=== PATIENT | female | born 1975 | race Caucasian/White ===

== ENCOUNTER 2024-01-19 01:28 | Emergency (ER) | payer OTHER, SELFPAY ==
[2024-01-19 03:03] LABS: PT Prothrombin Time 26.2 SECONDS (9.4-12.5); Protime INR 2.4
[2024-01-19 03:13] LABS: Barbiturates NEGATIVE (NEGATIVE); Benzodiazepines POSITIVE (NEGATIVE); Cocaine NEGATIVE (NEGATIVE); METHAMPHETAM NEGATIVE (NEGATIVE); Methadone NEGATIVE (NEGATIVE); Opiates NEGATIVE (NEGATIVE); Phencyclidine NEGATIVE (NEGATIVE); THC Cannibis NEGATIVE (NEGATIVE)
[2024-01-19] MEDS ORDERED: ONDANSETRON 4 MG/2 ML VIAL ONE ×2 (03:21→09:30)
[2024-01-19] MEDS ORDERED: MORPHINE 4 MG/ML SYR ONE ×4 (03:21→09:31)
[2024-01-19 03:25] LABS: Hematocrit 22.4 % (36.0-45.0); MCH 24.9 pg (27.0-35.0); MCHC 31.3 g/dL (32.0-36.0); MCV 79.5 fL (80-100); MPV 6.9 fL (7.6-11.3); Nucleated Red Blood Cells % 0.2 % (0-0); Platelets 139 thou/uL (152-406); RBC Red Blood Cell Count 2.82 M/uL (3.86-4.86); Red Cell Distribution Width 20.9 % (12.1-15.2)
[2024-01-19 03:29] LABS: Albumin 2.3 g/dL (3.4-5.0); Albumin/Globulin Ratio 0.8 (1.1-1.8); Anion Gap 8.6 mEq/L (5.0-15.0); Bilirubin Direct 2.8 mg/dL (0-0.2); Bilirubin Indirect, Calculated 1.9 mg/dL (0.2-0.8); Bilirubin Total 4.7 mg/dL (0.2-1.0); Ferritin 22.4 ng/mL (8-252); Globulin 2.9 g/dL (2.3-3.5); Magnesium 1.9 mg/dL (1.6-2.4); Potassium 3.6 mEq/L (3.5-5.1); Protein, Total 5.2 g/dL (6.4-8.2); Troponin High Sensitivity 10.2 pg/mL (<58.9)
[2024-01-19 03:46] LABS: Anisocytosis 2+; Atypical Lymphocytes 2 %; Band Neutrophils 1 % (0-1); Blood Morphology Comment NOTED (NOT SEEN); Differential Total Cells Count 100; Eosinophils 2 % (0-3); Hypochromasia 1+; Lymphocytes 17 % (15-42); Monocytes 10 % (0-10); Ovalocytes 1+; Platelet Estimate DECR; Poikilocytosis 2+; Polychromasia 1+; Segmented Neutrophils 68 % (40-80); Teardrop Cell FEW
--- NOTE | 2024-01-19 03:59 | EDPHYS ---
Physician Documentation [facility] Name: Carlos Neely Age: 48 yrs Sex: Female : 1975 Arrival Date: 01/19/2024 Time: 01:28 Bed 6 Private MD: ED Physician Demetrio Harris HPI: 01/18 02:25 This 48 yrs old Unknown Female presents to ER via Wheelchair with complaints of cp Abnormal Lab Results, Swelling of Lower Extremity, HEMOGLOBIN LESS THAN 7. 02:25 The patient presents with swelling, tenderness. cp 02:25 The complaints affect the right leg and left leg. Onset: The symptoms/episode cp began/occurred gradually. Associated signs and symptoms: Pertinent positives: shortness of breath. patient reports she was referred to ED by pcp for low hemoglobin. patient denies blood in stools, denies black tarry stools but reports mild vaginal menstrual bleeding. Historical: - Allergies: 02:05 No Known Allergies; ha1 - PMHx: 02:05 Cirrhosis of liver; ha1 - Immunization history:: Adult Immunizations up to date. - Infectious Disease History:: Denies. - Social history:: Smoking status: Patient denies any tobacco usage or history of. Patient uses alcohol, on a daily basis. ROS: 02:30 Constitutional: Negative for body aches, chills, fever, poor PO intake, cp 02:30 Cardiovascular: Positive for edema, Negative for chest pain, palpitations, cp 02:30 Respiratory: Positive for shortness of breath, Negative for cough, wheezing, 08:44 Constitutional: as per hpi ec2 Exam: 02:35 Constitutional: The patient appears in no acute distress, alert, awake, cp non-diaphoretic, non-toxic, well developed, well nourished, uncomfortable, 02:35 Head/Face: Normocephalic, atraumatic. cp 02:35 Eyes: Periorbital structures: appear normal, Pupils: equal, round, and reactive to light and accomodation, Extraocular movements: intact throughout, Conjunctiva: normal, no exudate, no injection, Sclera: no appreciated abnormality, Lids and lashes: appear normal, bilaterally, 02:35 ENT: External ear(s): are unremarkable, Nose: is normal, Mouth: Lips: moist, Oral mucosa: pink and intact, moist, Posterior pharynx: is normal, airway is patent, no erythema, no exudate, 02:35 Neck: ROM/movement: is normal, is supple, without pain, no range of motions limitations, 02:35 Chest/axilla: Inspection: normal, 02:35 Cardiovascular: Rate: normal, Rhythm: regular, Edema: 2+ edema to level of left knee and right knee, JVD: is not appreciated, 02:35 Respiratory: the patient does not display signs of respiratory distress, Respirations: normal, no use of accessory muscles, no retractions, labored breathing, is not present, Breath sounds: are clear throughout, no decreased breath sounds, no stridor, no wheezing, 02:35 Abdomen/GI: Inspection: distension, that is mild, Bowel sounds: active, all quadrants, Palpation: soft, in all quadrants, mild abdominal tenderness, in all quadrants, rebound tenderness, is not appreciated, involuntary guarding, is not appreciated, 03:02 ECG was reviewed by the Attending Physician. cp Vital Signs: 01:45 BP 148 / 86; Pulse 98; Resp 17 S; Temp 99.2(O); Pulse Ox 98% on R/A; Weight 58.06 kg; ha1 Height 5 ft. 2 in. ; 03:57 BP 128 / 76; Pulse 91; Resp 16; Pulse Ox 96% ; dd2 04:30 BP 116 / 70; Pulse 92; Resp 15; Pulse Ox 99% ; dd2 06:30 BP 117 / 67; Pulse 90; Resp 15; Pulse Ox 94% ; dd2 07:51 BP 110 / 62; Pulse 88; Resp 15; Pulse Ox 94% on R/A; hb 01:45 Body Mass Index 23.41 (58.06 kg, 157.48 cm) ha1 [place] Coma Score: 02:15 Eye Response: spontaneous(4). Motor Response: obeys commands(6). Verbal Response: dd2 oriented(5). Total: 15. MDM: 01:48 Medical Screening Exam initiated cp 03:00 Differential diagnosis: anemia, GI bleed, electrolyte abnormality, chf, liver failure. cp 06:44 Data reviewed: vital signs, nurses notes, lab test result(s), EKG, radiologic studies, dillon CT scan, plain films. Consideration of Admission/Observation Escalation of care including admission/observation considered. I considered the following discharge prescriptions or medication management in the emergency department Medications were administered in the Emergency Department. See MAR. Test considered but Not performed:. Care significantly affected by the following chronic conditions: Liver Disease. 08:44 ED course: Patient will be an ER to ER transfer, discussed case with the ER physician ecNilesh christian at [facility] who agrees accept the patient for transfer. Patient with a GI bleed, anemia hemoglobin of 7, will give the patient Protonix push and drip as well. Patient require transfer for GI consultation. Patient remains hemodynamically stable.. 01/18 02:22 Order name: Basic Metabolic Panel; Complete Time: 03:36 cp 01/18 03:37 Interpretation: Normal except: CL 110; CA 8.1. cp 01/18 02:22 Order name: CBC with Diff; Complete Time: 03:49 cp 01/18 03:37 Interpretation: Normal except: RBC 2.82; HGB 7.0; HCT 22.4; MCV 79.5; MCH 24.9; MCHC cp 31.3; PLT 139; RDW 20.9; MPV 6.9. 01/18 02:22 Order name: LFT's; Complete Time: 03:36 cp 01/18 03:38 Interpretation: Normal except: AST 47; ALK 159; BILIT 4.7; BILID 2.8; IBILI, CALC 1.9; cp TP 5.2; ALB 2.3; A/G 0.8. 01/18 02:22 Order name: Magnesium; Complete Time: 03:36 cp 01/18 02:22 Order name: NT PRO-BNP; Complete Time: 03:36 cp 01/18 02:22 Order name: PT-INR; Complete Time: 03:04 cp 01/18 03:04 Interpretation: Reviewed. cp 01/18 02:22 Order name: Troponin HS; Complete Time: 03:36 cp 01/18 02:22 Order name: Ptt, Activated; Complete Time: 03:04 cp 01/18 03:04 Interpretation: Reviewed. cp 01/18 02:22 Order name: Type And Screen cp 01/18 05:59 Interpretation: Reviewed. cp 01/18 02:22 Order name: ETOH Level; Complete Time: 03:36 cp 01/18 02:22 Order name: UDS; Complete Time: 03:36 01/18 03:38 Interpretation: Reviewed. 01/18 02:22 Order name: TIBC; Complete Time: 03:36 01/18 03:38 Interpretation: IRON 35.0; %SAT 11.1; Reviewed. 01/18 02:22 Order name: Ferritin; Complete Time: 03:36 01/18 03:30 Order name: Manual Differential; Complete Time: 03:49 EDWA 01/18 03:51 Order name: Lactate w/ 2H reflex if indic.; Complete Time: 05:59 01/18 04:20 Order name: Antibody Identification [facility] 01/18 04:20 Order name: Packed RBC Leukored [facility] 01/18 05:10 Order name: AMMONIA; Complete Time: 06:45 01/18 07:07 Order name: ABO/RH no charge; Complete Time: 08:39 [facility] 01/18 02:22 Order name: XRAY Chest (1 view) 01/18 03:51 Order name: CT Chest, Abdomen, Pelvis - W/Contrast 01/18 02:22 Order name: EKG; Complete Time: 02:23 01/18 02:22 Order name: Cardiac monitoring; Complete Time: 03:15 01/18 02:22 Order name: EKG - Nurse/Tech; Complete Time: 03:15 01/18 02:22 Order name: IV Saline Lock; Complete Time: 03:15 01/18 02:22 Order name: Labs collected and sent; Complete Time: 03:15 01/18 02:22 Order name: O2 Per Protocol; Complete Time: 03:15 01/18 02:22 Order name: O2 Sat Monitoring; Complete Time: 03:15 EC:02 Rate is 89 beats/min. Rhythm is regular. OK interval is normal. QRS interval is normal. cp QT interval is normal. T waves are Inverted in lead aVR. Interpreted by me. Reviewed by me. Administered Medications: 03:35 Drug: morphine IVP or IV 4 mg IVP once over 4 mins Route: IVP; Infused Over: 4 mins; dd2 Site: right antecubital; 03:50 Follow up: Response: No adverse reaction dd2 03:35 Drug: Ondansetron IVP 4 mg IVP once; over 2 minutes Route: IVP; Site: right antecubital;dd2 03:50 Follow up: Response: No adverse reaction dd2 06:24 Drug: morphine IVP or IV 4 mg IVP once over 4 mins Route: IVP; Infused Over: 4 mins; bm8 Site: right antecubital; 06:39 Follow up: Response: No adverse reaction dd2 06:29 Drug: Piperacillin-Tazobactam IVPB 3.375 grams IVPB once over 60 mins; (mix in NS 100 bm8 mL) Route: IVPB; Infused Over: 60 mins; Site: right antecubital; 06:44 Follow up: Response: No adverse reaction dd2 09:10 Drug: Pantoprazole IVP 80 mg IVP once Route: IVP; Site: right antecubital; hb 09:25 Follow up: Response: Medication administered at discharge. hb 09:22 Drug: Pantoprazole IV 8 mg/hr IV at 25 ml/hr continuous; (Standard dilution is 80 mg in hb 250 mL NS) Route: IV; Rate: 25 ml/hr; Site: right antecubital; 09:25 Follow up: Response: Medication administered at discharge.; IV Status: Infusion hb continued upon transfer; IV Intake: 2ml 09:35 Drug: morphine IVP or IV 4 mg IVP once over 4 mins Route: IVP; Infused Over: 4 mins; hb Site: right antecubital; 09:35 Drug: Ondansetron IVP 4 mg IVP once; over 2 minutes Route: IVP; Site: right antecubital;hb Disposition: 06:43 Co-signature as Attending Physician, Devonte Mckenzie MD I agree with the assessment and dillon plan of care. Disposition Summary: 01/19/24 03:58 Transfer Ordered Notes: Transfer Location: [facility] cp Reason: Higher level of care cp Condition: Stable cp Problem: new cp Symptoms: have improved cp Accepting Physician: DR HAYNES(01/19/24 10:04) hb Diagnosis - Anemia in other chronic diseases classified elsewhere cp - Hepatic failure, unspecified without coma cp - Alcoholic cirrhosis of liver cp - Pneumonia, unspecified organism cp - Alcoholic cirrhosis of liver with ascites dillon Forms: - Medication Reconciliation Form cp - SBAR form cp Critical care time excluding procedures: 08:50 Critical care time: Bedside Care: 20 minutes, Consultation: 10 minutes, Family ec2 Intervention: 5 minutes. Total time: 35 minutes Signatures: Dispatcher [employer] Devonte Garcia MD MD cha Page, Corey, Laura Ken cp, RN RN hb [address] RN RN ha1 Demetrio Harris MD MD ec2 Valentín Blanca RN RN bm8 LIVIER JANE RN RN dd2 Corrections: (The following items were deleted from the chart) 06:06 03:58 DR cathy morgan 06:09 06:06 DR cathy carranza 06:48 06:09 DR dillon carranza 10:04 06:48 DR [place] carranza
--- NOTE | 2024-01-19 03:59 | ER ---
Nurse's Notes [facility] Name: Carlos Neely Age: 48 yrs Sex: Female : 1975 Arrival Date: 01/19/2024 Time: 01:28 Bed 6 Private MD: Diagnosis: Anemia in other chronic diseases classified elsewhere;Hepatic failure, unspecified without coma;Alcoholic cirrhosis of liver;Pneumonia, unspecified organism;Alcoholic cirrhosis of liver with ascites Presentation: 01/18 01:45 Chief complaint: Patient states: ABNORMAL LAB RESULTS, SWELLING OF LOWER EXTREMITIES. ha1 01:45 Coronavirus screen: Vaccine status: Patient reports being unvaccinated. Ebola Screen: ha1 No symptoms or risks identified at this time. Initial Sepsis Screen: Does the patient meet any 2 criteria? No. Patient's initial sepsis screen is negative. Does the patient have a suspected source of infection? No. Patient's initial sepsis screen is negative. Risk Assessment: Do you want to hurt yourself or someone else? Patient reports no desire to harm self or others. Onset of symptoms was January 19, 2024. 01:45 Method Of Arrival: Wheelchair ha1 01:45 Acuity: NAKITA 3 ha1 Triage Assessment: 01:45 General: Appears uncomfortable, Behavior is cooperative. General: SENT BY PCP DUE TO ha1 LOW HEMOGLOBIN LEVELS . Neuro: Level of Consciousness is awake, alert, obeys commands, Oriented to person, place, time, situation. Respiratory: Airway is patent Respiratory effort is even, unlabored, Respiratory pattern is regular, symmetrical. Historical: - Allergies: 02:05 No Known Allergies; ha1 - PMHx: 02:05 Cirrhosis of liver; ha1 - Immunization history:: Adult Immunizations up to date. - Infectious Disease History:: Denies. - Social history:: Smoking status: Patient denies any tobacco usage or history of. Patient uses alcohol, on a daily basis. Screenin:15 [facility] ED Fall Risk Assessment (Adult) History of falling in the last 3 months, dd2 including since admission No falls in past 3 months (0 pts) Confusion or Disorientation No (0 pts) Intoxicated or Sedated No (0 pts) Impaired Gait No (0 pts) Mobility Assist Device Used No (0 pt) Altered Elimination No (0 pt) Score/Fall Risk Level 0 - 2 = Low Risk Oriented to surroundings, Maintained a safe environment, Educated pt \\T\\ family on fall prevention, incl call for assistance when getting out of bed, Assessed \\T\\ reinforced patient's understanding of fall precautions, Hourly rounding (assess needs \\T\\ fall precautionary measures) done. Abuse screen: Denies threats or abuse. Nutritional screening: No deficits noted. Tuberculosis screening: No symptoms or risk factors identified. Assessment: 02:15 General: Appears uncomfortable, Behavior is calm, cooperative, appropriate for age. dd2 Pain: Complains of pain in abdomen, right leg and left leg. Neuro: Level of Consciousness is awake, alert, obeys commands, Oriented to person, place, time, situation, Appropriate for age. Cardiovascular: Denies chest pain, Heart tones S1 S2 present Patient's skin is warm and dry. Respiratory: Airway is patent Respiratory effort is even, unlabored, Respiratory pattern is regular, symmetrical, Breath sounds are clear bilaterally. GI: Abdomen is round distended, Bowel sounds Abd is non tender Reports abd swelling. : No deficits noted. No signs and/or symptoms were reported regarding the genitourinary system. Urine is cloudy, [place] colored. EENT: No deficits noted. No signs and/or symptoms were reported regarding the EENT system. Derm: Skin is dry, Skin is jaundiced, Skin temperature is warm. Musculoskeletal: No deficits noted. No signs and/or symptoms reported regarding the musculoskeletal system. Circulation, motion, and sensation intact. Range of motion: intact in all extremities. 02:15 Derm: Musculoskeletal: Swelling present in abdomen, right leg and left leg. dd2 07:51 Reassessment: Patient appears in no apparent distress at this time. Patient and/or hb family updated on plan of care and expected duration. Pain level reassessed. Patient is alert, oriented x 3, equal unlabored respirations, skin warm/dry/pink. Vital Signs: 01:45 BP 148 / 86; Pulse 98; Resp 17 S; Temp 99.2(O); Pulse Ox 98% on R/A; Weight 58.06 kg; ha1 Height 5 ft. 2 in. ; 03:57 BP 128 / 76; Pulse 91; Resp 16; Pulse Ox 96% ; dd2 04:30 BP 116 / 70; Pulse 92; Resp 15; Pulse Ox 99% ; dd2 06:30 BP 117 / 67; Pulse 90; Resp 15; Pulse Ox 94% ; dd2 07:51 BP 110 / 62; Pulse 88; Resp 15; Pulse Ox 94% on R/A; hb 01:45 Body Mass Index 23.41 (58.06 kg, 157.48 cm) ha1 [place] Coma Score: 02:15 Eye Response: spontaneous(4). Motor Response: obeys commands(6). Verbal Response: dd2 oriented(5). Total: 15. ED Course: 01:31 Patient arrived in ED. [id number] 01:39 Valentín Blanca, RN is Primary Nurse. bm8 01:48 Devonte Gibbs PA is PHCP. cp 01:48 Devonte Mckenzie MD is Attending Physician. cp 02:05 Triage completed. ha1 02:15 No provider procedures requiring assistance completed. dd2 02:15 Patient has correct armband on for positive identification. Bed in low position. Call dd2 light in reach. Side rails up X 1. Client placed on continuous cardiac and pulse oximetry monitoring. NIBP monitoring applied. monitoring analyst on. Door closed. Noise minimized. Warm blanket given. Pillow given. Verbal reassurance given. 02:44 Inserted saline lock: 20 gauge in right antecubital area, using aseptic technique. kmf Blood collected. Flushed with 10 mL NS. 03:14 Initial lab(s) drawn, by ED staff, sent to lab. Urine collected: clean catch specimen, dd2 mad[place] colored, EKG done, by ED staff, reviewed by Devonte HOLLINGSWORTH. Patient maintains SpO2 saturation greater than 95% on room air. 03:46 XRAY Chest (1 view) In Process Unspecified. EDMS 04:14 Lactate w/ 2H reflex if indic. Sent. dd2 04:14 Blood Culture Adult (2) Sent. dd2 04:41 CT Chest, Abdomen, Pelvis - W/Contrast In Process Unspecified. EDMS 05:37 T\\T\\S collected, blood band applied to patient. bm8 06:40 called the [facility] transfer center to check on the status of the transfer initiated eb by caustic cresylate shift superintendent/ per transfer center "there is only two of us , give us sometime , we're working on three other transfers currently" provider notified of the delay. 06:50 connected the hospitalist director of food and nutrition for [facility] with Dr. Mckenzie for patient transfer eb consultation. 08:42 connected the ED doctor director of food and nutrition for [facility] with Dr. Harris for patient transfer eb consultation. 08:44 Attending Physician role handed off by Devonte Mckenzie MD ec2 08:44 Demetrio Harris MD is Attending Physician. ec2 08:44 administrative approval given by Jo Ann Salazar Rn/ patient has been accepted to [facility] ED/ Dr. Cardenas has accepted the patient transfer/ report to be called to [phone]. 09:25 Inserted saline lock: 22 gauge in left Flushed with 10 mL NS Inserted by Joya Talamantes RN.iw Administered Medications: 03:35 Drug: morphine IVP or IV 4 mg IVP once over 4 mins Route: IVP; Infused Over: 4 mins; dd2 Site: right antecubital; 03:50 Follow up: Response: No adverse reaction dd2 03:35 Drug: Ondansetron IVP 4 mg IVP once; over 2 minutes Route: IVP; Site: right antecubital;dd2 03:50 Follow up: Response: No adverse reaction dd2 06:24 Drug: morphine IVP or IV 4 mg IVP once over 4 mins Route: IVP; Infused Over: 4 mins; bm8 Site: right antecubital; 06:39 Follow up: Response: No adverse reaction dd2 06:29 Drug: Piperacillin-Tazobactam IVPB 3.375 grams IVPB once over 60 mins; (mix in NS 100 bm8 mL) Route: IVPB; Infused Over: 60 mins; Site: right antecubital; 06:44 Follow up: Response: No adverse reaction dd2 09:10 Drug: Pantoprazole IVP 80 mg IVP once Route: IVP; Site: right antecubital; hb 09:25 Follow up: Response: Medication administered at discharge. hb 09:22 Drug: Pantoprazole IV 8 mg/hr IV at 25 ml/hr continuous; (Standard dilution is 80 mg in hb 250 mL NS) Route: IV; Rate: 25 ml/hr; Site: right antecubital; 09:25 Follow up: Response: Medication administered at discharge.; IV Status: Infusion hb continued upon transfer; IV Intake: 2ml 09:35 Drug: morphine IVP or IV 4 mg IVP once over 4 mins Route: IVP; Infused Over: 4 mins; hb Site: right antecubital; 09:35 Drug: Ondansetron IVP 4 mg IVP once; over 2 minutes Route: IVP; Site: right antecubital;hb Medication: 02:15 VIS not applicable for this client. dd2 Intake: 09:25 IV: 2ml; Total: 2ml. hb Outcome: 03:58 ER care complete, transfer ordered by . 10:04 Patient left the ED. hb Signatures: Dispatcher [employer] Uyen Carvalho RN RN Devonte Cole PA PA cp Laura Alejandre RN RN Sarah Cardenas Jennifer jj6 [address] RN RN ha1 Demetrio Harris MD MD 2 Rona Bone Brad RN RN bm8 LIVIER JANE RN RN dd2
--- NOTE | 2024-01-19 05:28 | RAD REPORT ---
EXAM DESCRIPTION: Chest Abdomen Pelvis W Cont CLINICAL HISTORY: sob, abdominal swelling COMPARISON: None Available. TECHNIQUE: CT of the chest, abdomen and pelvis performed following IV administration of iodinated con trast. This exam was performed according to our departmental dose-optimization program, which includes automated exposure control, adjustment of the mA and/or kV according to patient size and/or use of iterative reconstruction technique. FINDINGS: Chest: Thyroid: No abnormalities of the visualized thyroid. Great Vessels: Great vessels have normal anatomic configuration. Thoracic Aorta: No abnormalities of the thoracic aorta identified. Pulmonary arteries: No central filling defects. Heart: Cardiac megaly. Lymph Nodes: No enlarged mediastinal lymph nodes identified. Esophagus: Small hiatal hernia. Other: No additional findings. Lungs: Mild patchy peripheral groundglass opacities bilaterally. Pleura: No pleural effusion or pneumothorax. Trachea/Airways: No abnormalities of the visualized trachea or airways. Abdomen: Liver: Nodular contour of liver. Gallbladder: No calcified gallstones. Spleen, Pancreas, and Adrenal Glands: Splenomegaly. Splenorenal shunt. The pancreas and adrenal gla nds are unremarkable. Kidneys: No hydronephrosis or obstructing ureteral calculus. Vasculature: The aorta and IVC have normal caliber and position. The portal vein is patent. The pro ximal visceral and renal arteries are patent. Stomach: The stomach and duodenum have normal course. Other: No free intraperitoneal air. Moderate amount of ascites. Body wall anasarca. Pelvis: Bladder: Urinary bladder is unremarkable. Bowel: No dilated loops of large or small bowel. Wall thickening of the ascending colon. Scattered diverticula of the colon. Appendix: Normal appendix. Pelvis: Uterus is not enlarged. Bones: No acute osseous abnormality. IMPRESSION: 1. Mild patchy peripheral groundglass opacities bilaterally. Commonly reported imaging features of viral pneumonia are present. Other processes such as influenza pneumonia and organizing pneumonia, as can be seen with drug toxicity and connective tissue disease, can cause similar imaging pattern. 2. Findings compatible with cirrhosis and portal hypertension. Moderate amount of ascites. 3. Splenomegaly. 4. Wall thickening of the ascending colon. This could be seen with nonspecific colitis or may be re lated to hypoproteinemia. 5. Diverticulosis without evidence of acute diverticulitis. 6. Cardiomegaly. Electronically signed by: Edin Ulloa DO 01/19/2024 05:24 AM CDT 4ZDM Due to temporary technical issues with the PACS/[employer] reporting system, reports are being ok d by the in-house radiologist without review as a courtesy to ensure prompt reporting the interpreting radiologist is fully responsible for the content of the report. Transcribed Date/Time: 01/19/2024 5:27 AM
--- NOTE | 2024-01-19 06:08 | RAD REPORT ---
EXAM DESCRIPTION: Chest Single View CLINICAL HISTORY: edema COMPARISON: None. FINDINGS: 1 view(s) of the chest. Tubes and lines: None. Cardiomediastinal silhouette: Cardiomegaly. Lungs: No consolidation, pneumothorax, or pleural effusion. Bones: No acute osseous abnormality. Upper abdomen: No abnormality identified. IMPRESSION: No acute pulmonary process identified. Cardiomegaly. Electronically signed by: Edin Ulloa DO 01/19/2024 05:20 AM CDT RP 4ZDM Due to temporary technical issues with the PACS/[employer] reporting system, reports are being ok d by the in-house radiologist without review as a courtesy to ensure prompt reporting the interpreting radiologist is fully responsible for the content of the report. Transcribed Date/Time: 01/19/2024 6:07 AM
[2024-01-19] MEDS ORDERED: NA CHLORIDE 0.9% 100 ML ONE (06:21)
[2024-01-19] MEDS ORDERED: PIPERACIL/TAZO 3.375 GM VIAL IV ONE (06:22)
[2024-01-19] MEDS ORDERED: PANTOPRAZOLE 40 MG INJ ONE (09:06)
[2024-01-19] MEDS ORDERED: NA CHLORIDE 0.9% 250 ML ONE (09:07)
[2024-01-19 10:32] VITALS: TEMP 99.2
[2024-01-19 10:36] VITALS: O2SAT 94
[2024-01-19 10:37] VITALS: BP 110/62
--- NOTE | 2024-01-22 12:25 | EKG ---
Test Date: 2024-01-19 Test Time: 02:56:17 It Security Specialist: FANNY MEASUREMENT RESULTS: Intervals: Rate: 89 MA: 146 QRSD: 74 QT: 384 QTc: 467 Parlier: P: 71 MA: 146 QRS: 40 T: 47 INTERPRETIVE STATEMENTS: Normal sinus rhythm Normal ECG No previous ECG available for comparison Electronically Signed On 01-22-24 12:19:12 GEOSPATIAL TECHNICIAN by Bandar Atkinson
== END 2024-01-19 10:04 | disposition short-term general hospital (02) ==
LOC: ER 01:28
DX: K70.31 Alcoholic cirrhosis of liver with ascites (principal); D63.8 Anemia in other chronic diseases classified elsewhere; K72.90 Hepatic failure, unspecified without coma; J18.9 Pneumonia, unspecified organism
CPT/HCPCS: 36415; 71045; 71260; 74177; 80048; 80076; 80307; 82077; 82140; 82728; 83540; 83605; 83735; 83880; 84466; 84484; 85025; 85610; 85730; 86850; 86870; 86880; 86900; 86901; 93005; 96374; 96375; 99285; J2405; J2470; J2543; J7050; Q9967

== ENCOUNTER 2024-02-23 05:47 | Emergency (ER) | payer OTHER, SELFPAY ==
[2024-02-23 06:37] LABS: Absolute Basophils 0.1 K/uL (0-0.5); Absolute Lymphocytes (CBC) 3.3 K/uL (0.7-4.9); Absolute Monocytes 2.3 K/uL (0.1-1.3); Absolute Neutrophil 13.1 K/uL (1.8-8.0); Basophils % 0.4 % (0-1.3); Eosinophils % 0.1 % (0-4.4); Hematocrit 24.4 % (36.0-45.0); Hemoglobin 8.2 g/dL (12.0-15.0); Lymphocytes % 17.4 % (15.3-44.8); MCH 34.9 pg (27.0-35.0); MCHC 33.5 g/dL (32.0-36.0); MCV 104.3 fL (80-100); MPV 7.3 fL (7.6-11.3); Monocytes % 12.4 % (3.3-12.3); Neutrophils % 69.7 % (41.7-73.7); Nucleated Red Blood Cells % 0.2 % (0-0); Platelets 131 thou/uL (152-406); RBC Red Blood Cell Count 2.34 M/uL (3.86-4.86); Red Cell Distribution Width 27.9 % (12.1-15.2)
[2024-02-23] MEDS ORDERED: CEFTRIAXONE 1000 MG/VIAL ONE (06:39)
[2024-02-23] MEDS ORDERED: NA CHLORIDE 0.9% 500 ML ONE (06:40)
[2024-02-23] MEDS ORDERED: ALBUMIN HUMAN 25% 100 ML IV ONE (06:41)
[2024-02-23] MEDS ORDERED: NA CHLORIDE 0.9% 50 ML ONE (06:41)
[2024-02-23 06:44] LABS: PT Prothrombin Time 21.8 SECONDS (9.4-12.5); PTT, Activated Partial Thromb 38.4 SECONDS (24.3-36.9); Protime INR 1.99
--- NOTE | 2024-02-23 07:00 | RAD REPORT ---
EXAM: Chest Single View HISTORY: CHEST PAIN COMPARISON: None. FINDINGS: LUNGS/PLEURA: Persistent airspace disease in the medial right lung base which is mildly consolidative . The lungs are otherwise clear. No pulmonary edema. MEDIASTINUM: The mediastinal silhouette is within normal limits. CARDIAC: The cardiac silhouette is within normal limits. UPPER ABDOMEN: No significant abnormality. BONES: No acute fracture. LINES/TUBES/OTHER: N/A IMPRESSION: Persistent airspace disease in the medial right lung base consistent with pneumonia or sequela of rec ent pneumonia.
[2024-02-23 07:09] LABS: Albumin 2.3 g/dL (3.4-5.0); Albumin/Globulin Ratio 0.9 (1.1-1.8); Anion Gap 10.3 mEq/L (5.0-15.0); Globulin 2.5 g/dL (2.3-3.5); Potassium 3.3 mEq/L (3.5-5.1); Protein, Total 4.8 g/dL (6.4-8.2)
[2024-02-23 07:10] LABS: Bilirubin Direct 6.5 mg/dL (0-0.2); C-Reactive Protein 29.5 mg/L (<3.00); Troponin High Sensitivity 51.2 pg/mL (<58.9)
--- NOTE | 2024-02-23 07:29 | RAD REPORT ---
EXAMINATION: CT HEAD WITHOUT CONTRAST CLINICAL INDICATION: Female, 48 years old.CONFUSED TECHNIQUE: Axial CT images from the skull base to the vertex without intravenous contrast. Coronal an d sagittal reformatted images were created from the data set. One or more of the following dose reduction techniques were used: Automated exposure control, adjustment of the mA and/or kV according to patient size, and/or iterative reconstruction. Unless otherwise specified, incidental findings do not require dedicated imaging follow-up. [id number]. COMPARISON: No prior exam. FINDINGS: INTRACRANIAL: No acute intracranial hemorrhage. No hydrocephalus. No mass effect or midline shift. No significant white matter disease. VASCULATURE: No visualized abnormalities in the arteries or dural venous sinuses. SCALP/SKULL: No significant soft tissue or osseous abnormalities. SINUSES: The visualized paranasal sinuses and mastoid air cells are predominantly clear. IMPRESSION: No acute intracranial abnormality.
[2024-02-23] MEDS ORDERED: LACTULOSE 20 GM/30 ML UCUP ONE (07:59)
[2024-02-23] MEDS ORDERED: ONDANSETRON 4 MG/2 ML VIAL ONE (07:59)
[2024-02-23 08:06] LABS: Anisocytosis 2+; Blood Morphology Comment NOTED (NOT SEEN); Platelet Estimate ADEQ; White Blood Cell Scan OK (OK)
[2024-02-23 08:06] LABS: Specific Gravity 1.013 (1.005-1.030); Sqamous Epithelial <5 /HPF (None Seen); Urine Bacteria None Seen /HPF (<20); Urine Bilirubin 1+ (Negative); Urine Blood 1+ (Negative); Urine Clarity Turbid (Clear); Urine Color Dark-Yellow (Yellow); Urine Culture Reflex Order NOT NEEDED; Urine Glucose NEGATIVE (Negative); Urine Ketones NEGATIVE (Negative); Urine Microscopic Reflex YN ORDER UMIC; Urine Mucus Slight /HPF (None Seen); Urine Nitrite NEGATIVE (Negative); Urine Protein NEGATIVE (Negative); Urine RBC <5 /HPF (None Seen); Urine Urobilinogen 4+ (Over) (Normal); Urine WBC <5 /HPF (<5)
[2024-02-23 08:07] LABS: Burr Cells 1+; Macrocytosis 1+; Polychromasia 1+
--- NOTE | 2024-02-23 08:16 | EDPHYS ---
Physician Documentation [facility] Name: Carlos Neely Age: 48 yrs Sex: Female : 1975 Arrival Date: 02/23/2024 Time: 05:47 Bed 18 Private MD: ED Physician Dusty Mitchell HPI: 02/22 06:15 This 48 yrs old Female presents to ER via EMS with complaints of Altered sp4 Mental Status. 07:25 48-year-old female presents with altered mental status. EMS reported that patient's sp4 friend called EMS. Patient has history of extensive alcohol abuse and liver cirrhosis. On arrival patient is unable to provide any history. She appears confused. Patient is jaundiced and has scleral icterus. Historical: - Allergies: 06:11 No Known Allergies; kj2 - PMHx: 06:11 cirrhosis of liver; kj2 - Immunization history:: Adult Immunizations unknown. - Infectious Disease History:: Denies. - Social history:: Smoking status: unknown. - Family history:: not pertinent. ROS: 07:25 Constitutional: Negative for fever, chills, and weight loss, positive for jaundice, sp4 positive for confusion 07:25 All other systems are negative, 07:25 Unable to obtain ROS due to obtunded state, Exam: 07:25 Constitutional: Ill-appearing female, jaundiced, scleral icterus, generalized sp4 weakness, physical deconditioning, signs of liver failure Head/Face: Normocephalic, atraumatic. Eyes: Pupils equal round and reactive to light, extra-ocular motions intact. Lids and lashes normal. Cornea within normal limits. Periorbital areas with no swelling, redness, or edema. Moderate scleral icterus ENT: Nares patent. No nasal discharge, no septal abnormalities noted. Tympanic membranes are normal and external auditory canals are clear. Oropharynx with no redness, swelling, or masses, exudates, or evidence of obstruction, uvula midline. Mucous membranes moist. Neck: Trachea midline, no thyromegaly or masses palpated, and no cervical lymphadenopathy. Supple, full range of motion without nuchal rigidity, or vertebral point tenderness. Chest/axilla: Normal chest wall appearance and motion. Nontender with no deformity. No lesions are appreciated. Cardiovascular: Regular rate and rhythm with a normal S1 and S2. No gallops, murmurs, or rubs. Normal PMI, no JVD. No pulse deficits. Respiratory: Lungs have equal breath sounds bilaterally, clear to auscultation and percussion. No rales, rhonchi or wheezes noted. No increased work of breathing, no retractions or nasal flaring. Abdomen/GI: Soft, with normal bowel sounds. No distension or tympany. No guarding or rebound. There is enlarged liver Back: No spinal tenderness. No costovertebral tenderness. Skin: Warm, dry with poor skin turgor and diffuse jaundice MS/ Extremity: Pulses equal, no cyanosis. Neurovascular intact. Full, normal range of motion. Neuro: Awake and alert, GCS 14, moves all extremities Psych: Awake, alert, with orientation to person 07:29 ECG was reviewed by the Attending Physician. EKG at 0608 sinus rhythm short AR rate sp4 80 otherwise normal Vital Signs: 05:50 BP 98 / 59; Pulse 83; Resp 20; Pulse Ox 100% on R/A; kj2 07:26 Temp 97.9(O); Weight 52.16 kg (M); kc6 07:32 BP 103 / 58; Pulse 90; Resp 20; Pulse Ox 98% on R/A; kj2 07:51 BP 110 / 48; Pulse 82; Resp 18 S; Pulse Ox 100% on R/A; kc6 08:07 BP 101 / 81; Pulse 86; Resp 20 S; Pulse Ox 100% on R/A; kc6 08:25 BP 112 / 59; Pulse 77; Resp 19 S; Pulse Ox 100% on R/A; kc6 09:06 BP 110 / 68; Pulse 90; Resp 18 S; Pulse Ox 100% on R/A; kc6 09:44 BP 92 / 60; Pulse 98; Resp 17 S; Pulse Ox 100% on R/A; kc6 Nyasia Coma Score: 07:25 Eye Response: spontaneous(4). Motor Response: obeys commands(6). Verbal Response: sp4 confused(4). Total: 14. MDM: 06:18 Medical Screening Exam initiated sp4 07:30 Differential Diagnosis: CVA, electrolyte abnormality, alcohol intoxication, sp4 hypoglycemia, intracranial bleed, meningitis, overdose. Data reviewed: vital signs, nurses notes, EMS record, lab test result(s), EKG, radiologic studies, CT scan. Consideration of Admission/Observation Escalation of care including admission/observation considered. Transition of care: After a detail discussion of the patient's case, care is transferred to Dusty Mitchell MD. 08:06 ED course: Discussed case with hospitalist service, they recommend transfer for rn hepatology given sudden increase in bilirubin, hepatic encephalopathy and we do not have GI on-call.. 08:08 ED course: MELD 28. rn 08:14 Counseling: I had a detailed discussion with the patient and/or guardian regarding the rn historical points, exam findings, and any diagnostic results supporting the discharge/admit diagnosis, lab results, radiology results, the need to transfer to another facility. ED course: I personally spent 35 minutes engaged in work directly related to the individual patient's care. This does not include any time spent performing procedures. The patient has been deemed critically ill because of hepatic encephalopathy, acute liver failure, MELD score of 28 requiring resuscitation and organization of transfer.. 12 06:16 Order name: Blood Culture Adult (2) sp4 02/22 06:16 Order name: CBC with Diff; Complete Time: 08:08 sp4 02/22 06:16 Order name: CMP; Complete Time: 07:18 sp4 02/22 06:16 Order name: Lactate w/ 2H reflex if indic.; Complete Time: 07:18 sp4 02/22 06:16 Order name: Protime (+inr); Complete Time: 07:18 sp4 02/22 06:16 Order name: Ptt, Activated; Complete Time: 07:18 sp4 02/22 06:16 Order name: Urinalysis w/ reflexes; Complete Time: 08:08 sp4 02/22 06:16 Order name: Alcohol Level; Complete Time: 07:18 sp4 02/22 06:16 Order name: AMMONIA; Complete Time: 07:18 sp4 02/22 06:17 Order name: CRP; Complete Time: 07:18 sp4 02/22 06:17 Order name: Troponin High Sensitivity; Complete Time: 07:18 sp4 02/22 06:17 Order name: BNP; Complete Time: 07:18 sp4 02/22 06:17 Order name: Bilirubin, Direct; Complete Time: 07:18 sp4 02/22 06:18 Order name: Glucose, Ancillary Testing; Complete Time: 07:18 EDMS 02/22 08:07 Order name: CBC Smear Scan; Complete Time: 08:08 EDMS 02/22 06:16 Order name: Chest Single View XRAY; Complete Time: 07:18 sp4 02/22 06:17 Order name: CT Head Brain wo Cont; Complete Time: 07:31 sp4 02/22 06:16 Order name: Accucheck; Complete Time: 06:33 sp4 02/22 06:16 Order name: Cardiac monitoring; Complete Time: 06:33 sp4 02/22 06:16 Order name: Cath; Complete Time: 07:49 sp4 02/22 06:16 Order name: EKG - Nurse/Tech; Complete Time: 06:33 sp4 02/22 06:16 Order name: IV Saline Lock - Large Bore; Complete Time: 06:33 sp4 02/22 06:16 Order name: Labs collected and sent; Complete Time: 06:33 sp4 02/22 06:16 Order name: O2 Per Protocol; Complete Time: 06:33 sp4 02/22 06:16 Order name: O2 Sat Monitoring; Complete Time: 06:33 sp4 02/22 06:16 Order name: Vital Signs; Complete Time: 06:34 sp4 EC:29 Rate is 80 beats/min. Rhythm is regular, Normal Sinus Rhythm. QRS [place] is Normal. AR sp4 interval is normal. QRS interval is normal. QT interval is prolonged. No Q waves. T waves are Normal. No ST changes noted. Clinical impression: No evidence of ischemia. Interpreted by me. Reviewed by me. Administered Medications: 07:05 Drug: Albumin IVPB 25 grams 100 ml IVPB once; (Note: Albumin 25% concentration) Volume: kj2 100 ml; Route: IVPB; Site: left antecubital; 07:49 Follow up: Response: No adverse reaction; IV Status: Completed infusion; IV Intake: kc6 100ml 07:05 Drug: Rocephin - Rocephin (cefTRIAXone) IVPB 1 grams IVPB once over 30 mins; (mix in 50 kj2 mL NS) Route: IVPB; Infused Over: 30 mins; Site: right antecubital; 07:50 Follow up: Response: No adverse reaction; IV Status: Completed infusion; IV Intake: 21plkc2 07:08 Drug: NS 0.9% IV 500 ml 500 ml IV at 1 bolus once; to be given as a bolus over 30 kj2 minutes Volume: 500 ml; Route: IV; Rate: 1 bolus; Site: right antecubital; 07:50 Follow up: Response: No adverse reaction; IV Status: Completed infusion; IV Intake: kc6 500ml 08:06 Drug: Ondansetron IVP 4 mg IVP once; over 2 minutes Route: IVP; Site: right antecubital;kc6 08:24 Follow up: Response: No adverse reaction kc6 08:07 Drug: Lactulose PO 20 grams 30 ml PO once Volume: 30 ml; Route: PO; kc6 08:24 Follow up: Response: No adverse reaction kc6 08:23 Drug: NS 0.9% IV 1000 ml IV at 1000 ml once; to be given as a bolus over 60 minutes kc6 Route: IV; Rate: 1000 ml; Site: right antecubital; 09:45 Follow up: Response: No adverse reaction; IV Status: Completed infusion; IV Intake: kc6 1000ml 09:44 Drug: Solu-CORTEF IVP 100 mg IVP once Route: IVP; Site: right antecubital; kc6 09:55 Follow up: Response: No adverse reaction kc6 Disposition: 08:14 Critical Care:. rn Disposition Summary: 02/23/24 08:16 Transfer Ordered Notes: Transfer Location: [facility] rn Reason: Higher level of care rn Condition: Stable rn Problem: new rn Symptoms: have improved rn Accepting Physician: (02/23/24 10:12) kc6 Diagnosis - Hepatic encephalopathy rn - Pneumonia, unspecified organism rn - Alcoholic cirrhosis of liver rn Forms: - Medication Reconciliation Form rn - SBAR form video intern time excluding procedures: 08:14 Critical care time: Bedside Care: 30 minutes, Consultation: 5 minutes. Total time: 35 rn minutes Signatures: Dispatcher [employer] EDMS Dusty Mitchell MD MD rn Campbell, Kaitlyn, RN RN kc6 Trace Samayoa MD MD sp4 Emily Young RN RN kj2 Corrections: (The following items were deleted from the chart) 06:16 06:16 BLOOD CULTURE*+BA.LAB.BRZ ordered. EDMS EDMS 06:16 06:16 CBC+H.LAB.BRZ ordered. EDMS EDMS 06:16 06:16 COMPREHENSIVE METABOLIC PANEL+C.LAB.BRZ ordered. EDMS EDMS 06:16 06:16 LACTATE+C.LAB.BRZ ordered. EDMS EDMS 06:16 06:16 PROTIME (+INR)+COAG.LAB.BRZ ordered. EDMS EDMS 06:16 06:16 PTT, ACTIVATED+COAG.LAB.BRZ ordered. EDMS EDMS 06:16 06:16 Urinalysis+U.LAB.BRZ ordered. EDMS EDMS 06:16 06:16 Chest Single View+RAD.RAD.BRZ ordered. EDMS EDMS 06:16 06:16 Arterial Blood Gas+RC.LAB.BRZ ordered. EDMS EDMS 06:18 06:18 C-REACTIVE PROTEIN+C.LAB.BRZ ordered. EDMS EDMS 06:18 06:18 Troponin High Sensitivity+C.LAB.BRZ ordered. EDMS EDMS 06:18 06:18 PROBNP+C.LAB.BRZ ordered. EDMS EDMS 07:29 07:25 Constitutional: Ill-appearing female, jaundiced, scleral icterus, generalized sp4 weakness, physical deconditioning, signs of liver failure Head/Face: Normocephalic, atraumatic. Eyes: Pupils equal round and reactive to light, extra-ocular motions intact. Lids and lashes normal. Cornea within normal limits. Periorbital areas with no swelling, redness, or edema. Moderate scleral icterus ENT: Nares patent. No nasal discharge, no septal abnormalities noted. Tympanic membranes are normal and external auditory canals are clear. Oropharynx with no redness, swelling, or masses, exudates, or evidence of obstruction, uvula midline. Mucous membranes moist. Neck: Trachea midline, no thyromegaly or masses palpated, and no cervical lymphadenopathy. Supple, full range of motion without nuchal rigidity, or vertebral point tenderness. Chest/axilla: Normal chest wall appearance and motion. Nontender with no deformity. No lesions are appreciated. Cardiovascular: Regular rate and rhythm with a normal S1 and S2. No gallops, murmurs, or rubs. Normal PMI, no JVD. No pulse deficits. Respiratory: Lungs have equal breath sounds bilaterally, clear to auscultation and percussion. No rales, rhonchi or wheezes noted. No increased work of breathing, no retractions or nasal flaring. Abdomen/GI: Soft, with normal bowel sounds. No distension or tympany. No guarding or rebound. There is enlarged liver Back: No spinal tenderness. No costovertebral tenderness. Skin: Warm, dry with poor skin turgor and diffuse jaundice MS/ Extremity: Pulses equal, no cyanosis. Neurovascular intact. Full, normal range of motion. Neuro: Awake and alert, GCS 15, oriented to person, place, time, and situation. Cranial nerves II-XII grossly intact. Motor strength 5/5 in all extremities. Sensory grossly intact. Psych: Awake, alert, with orientation to person, place and time. Behavior, mood, and affect are within normal limits sp4 10:12 08:16 Dr. hale kc6
--- NOTE | 2024-02-23 08:16 | ER ---
Nurse's Notes [facility] Name: Carlos Neely Age: 48 yrs Sex: Female : 1975 Arrival Date: 02/23/2024 Time: 05:47 Bed 18 Private MD: Diagnosis: Hepatic encephalopathy;Pneumonia, unspecified organism;Alcoholic cirrhosis of liver Presentation: 02/22 05:50 Chief complaint: EMS states: called by neighbor who says the patient is not her usual kj2 self. Coronavirus screen: At this time, the client does not indicate any symptoms associated with coronavirus-19. Ebola Screen: No symptoms or risks identified at this time. Initial Sepsis Screen: Does the patient meet any 2 criteria? Altered Mental Status. No. Patient's initial sepsis screen is negative. Does the patient have a suspected source of infection? No. Patient's initial sepsis screen is negative. Risk Assessment: Do you want to hurt yourself or someone else? Patient reports no desire to harm self or others. Onset of symptoms was February 23, 2024. 05:50 Method Of Arrival: EMS: [facility] 05:50 Acuity: NAKITA 3 kj2 07:15 Acuity: NAKITA 2 kc6 Triage Assessment: 05:50 General: Appears in no apparent distress. Behavior is calm. Pain: Complains of pain in kj2 abdomen. Neuro: Level of Consciousness is awake, alert, Oriented to person. Cardiovascular: Patient's skin is warm and dry. Respiratory: Airway is patent Respiratory effort is unlabored. GI: No signs and/or symptoms were reported involving the gastrointestinal system. : No signs and/or symptoms were reported regarding the genitourinary system. Historical: - Allergies: 06:11 No Known Allergies; kj2 - PMHx: 06:11 cirrhosis of liver; kj2 - Immunization history:: Adult Immunizations unknown. - Infectious Disease History:: Denies. - Social history:: Smoking status: unknown. - Family history:: not pertinent. Screenin:50 [facility] ED Fall Risk Assessment (Adult) History of falling in the last 3 months, kj2 including since admission No falls in past 3 months (0 pts) Confusion or Disorientation No (0 pts) Intoxicated or Sedated No (0 pts) Impaired Gait No (0 pts) Mobility Assist Device Used No (0 pt) Altered Elimination No (0 pt) Score/Fall Risk Level 0 - 2 = Low Risk Maintained a safe environment, Hourly rounding (assess needs \T\ fall precautionary measures) done. Abuse screen: Denies threats or abuse. Denies injuries from another. Nutritional screening: ENS reports no eating in > 3 days. Tuberculosis screening: No symptoms or risk factors identified. Assessment: 05:50 General: see triage assessment. kj2 06:55 Reassessment: Patient appears in no apparent distress at this time. Patient and/or kj2 family updated on plan of care and expected duration. Pain level reassessed. Patient is alert, oriented x 3, equal unlabored respirations, skin warm/dry/pink. 07:15 General: Appears in no apparent distress. uncomfortable, slender, unkempt, Behavior is kc6 agitated, restless. Pain: Noted to be agitated, confused, grimacing, restless, Unable to use pain scale. Patient is disoriented. Neuro: Level of Consciousness is confused, Oriented to person, place. Cardiovascular: Capillary refill < 3 seconds. Respiratory: Airway is patent Trachea midline Respiratory effort is even, unlabored, Respiratory pattern is regular, symmetrical. GI: No signs and/or symptoms were reported involving the gastrointestinal system. Abdomen is flat, non-distended. : No signs and/or symptoms were reported regarding the genitourinary system. bloody. EENT: No signs and/or symptoms were reported regarding the EENT system. Derm: Skin is intact, with poor turgor Skin is dry, Skin is jaundiced, pale, Skin temperature is warm. Musculoskeletal: No signs and/or symptoms reported regarding the musculoskeletal system. Circulation, motion, and sensation intact. Capillary refill < 3 seconds, Range of motion: intact in all extremities. 08:25 Reassessment: Patient appears in no apparent distress at this time. No changes from kc6 previously documented assessment. Patient and/or family updated on plan of care and expected duration. Pain level reassessed. 09:06 Reassessment: Patient appears in no apparent distress at this time. No changes from kc6 previously documented assessment. Patient and/or family updated on plan of care and expected duration. Pain level reassessed. 09:18 Reassessment: attempted to call report to [facility]. no answer at this time. kc6 09:26 Reassessment: attempted to call report to [facility]. no answer at this time. kc6 09:44 Reassessment: Patient appears in no apparent distress at this time. No changes from kc6 previously documented assessment. Patient and/or family updated on plan of care and expected duration. Pain level reassessed. Vital Signs: 05:50 BP 98 / 59; Pulse 83; Resp 20; Pulse Ox 100% on R/A; kj2 07:26 Temp 97.9(O); Weight 52.16 kg (M); kc6 07:32 BP 103 / 58; Pulse 90; Resp 20; Pulse Ox 98% on R/A; kj2 07:51 BP 110 / 48; Pulse 82; Resp 18 S; Pulse Ox 100% on R/A; kc6 08:07 BP 101 / 81; Pulse 86; Resp 20 S; Pulse Ox 100% on R/A; kc6 08:25 BP 112 / 59; Pulse 77; Resp 19 S; Pulse Ox 100% on R/A; kc6 09:06 BP 110 / 68; Pulse 90; Resp 18 S; Pulse Ox 100% on R/A; kc6 09:44 BP 92 / 60; Pulse 98; Resp 17 S; Pulse Ox 100% on R/A; kc6 Nyasia Coma Score: 07:25 Eye Response: spontaneous(4). Motor Response: obeys commands(6). Verbal Response: sp4 confused(4). Total: 14. ED Course: 06:02 Patient arrived in ED. gm2 06:07 Emily Young, RN is Primary Nurse. kj2 06:10 Triage completed. kj2 06:13 EKG done, by ski technician. af3 06:13 Inserted saline lock: 22 gauge in right antecubital area, using aseptic technique. af3 Blood collected. Flushed with 10 mL NS. 06:15 Trace Samayoa MD is Attending Physician. sp4 06:15 Patient has correct armband on for positive identification. Placed in gown. Bed in low kj2 position. Call light in reach. Provided Education on: call light. 06:32 Inserted saline lock: 22 gauge in left antecubital area, using aseptic technique. Blood af3 collected. Flushed with 10 mL NS. 06:33 Bilirubin, Direct Sent. af3 06:33 BNP Sent. af3 06:33 Troponin High Sensitivity Sent. af3 06:33 CRP Sent. af3 06:33 Blood Culture Adult (2) Sent. af3 06:33 CBC with Diff Sent. af3 06:33 CMP Sent. af3 06:33 Lactate w/ 2H reflex if indic. Sent. af3 06:33 Protime (+inr) Sent. af3 06:33 Ptt, Activated Sent. af3 06:52 Chest Single View XRAY In Process Unspecified. EDMS 07:00 Patient maintains SpO2 saturation greater than 95% on room air. kc6 07:00 Report given to BEDSIDE REPORT GIVEN TO SAULO Syed. kj2 07:00 Report received from Emily Young RN. kc6 07:00 Patient has correct armband on for positive identification. Placed in gown. Bed in low kc6 position. Call light in reach. Side rails up X2. bus driver/monitor on. Pulse ox on. NIBP on. Door closed. Noise minimized. Lights dimmed. Warm blanket given. Pillow given. 07:00 Arm band placed on. kc6 07:00 One-on-one care X 45 minutes. kc6 07:13 CT Head Brain wo Cont In Process Unspecified. EDMS 07:50 Caicedo cath inserted, using sterile technique, 12 Fr., by ED staff, balloon inflated, to kc6 gravity drainage, clamped. urine specimen collected. returned [place]ison urine. Patient tolerated poorly. 07:53 Attending Physician role handed off by Trace Samayoa MD rn 07:53 Dusty Mitchell MD is Attending Physician. rn 08:52 [id number] called [facility] transfer center talked to Doreen. sp 08:[address] talk with Dr[address] Mitchell. sp 09:[address] Gibran Back accepted pt to [facility]. 0855 Nasreen Kapoor admin approval bed 714 sp report number [phone]. 09:45 [facility] will transport pt to [facility] talked to Helga. sp 10:11 No provider procedures requiring assistance completed. Patient transferred, IV remains kc6 in place. Administered Medications: 07:05 Drug: Albumin IVPB 25 grams 100 ml IVPB once; (Note: Albumin 25% concentration) Volume: kj2 100 ml; Route: IVPB; Site: left antecubital; 07:49 Follow up: Response: No adverse reaction; IV Status: Completed infusion; IV Intake: kc6 100ml 07:05 Drug: Rocephin - Rocephin (cefTRIAXone) IVPB 1 grams IVPB once over 30 mins; (mix in 50 kj2 mL NS) Route: IVPB; Infused Over: 30 mins; Site: right antecubital; 07:50 Follow up: Response: No adverse reaction; IV Status: Completed infusion; IV Intake: 64iuud2 07:08 Drug: NS 0.9% IV 500 ml 500 ml IV at 1 bolus once; to be given as a bolus over 30 kj2 minutes Volume: 500 ml; Route: IV; Rate: 1 bolus; Site: right antecubital; 07:50 Follow up: Response: No adverse reaction; IV Status: Completed infusion; IV Intake: kc6 500ml 08:06 Drug: Ondansetron IVP 4 mg IVP once; over 2 minutes Route: IVP; Site: right antecubital;kc6 08:24 Follow up: Response: No adverse reaction kc6 08:07 Drug: Lactulose PO 20 grams 30 ml PO once Volume: 30 ml; Route: PO; kc6 08:24 Follow up: Response: No adverse reaction kc6 08:23 Drug: NS 0.9% IV 1000 ml IV at 1000 ml once; to be given as a bolus over 60 minutes kc6 Route: IV; Rate: 1000 ml; Site: right antecubital; 09:45 Follow up: Response: No adverse reaction; IV Status: Completed infusion; IV Intake: kc6 1000ml 09:44 Drug: Solu-CORTEF IVP 100 mg IVP once Route: IVP; Site: right antecubital; kc6 09:55 Follow up: Response: No adverse reaction kc6 Medication: 06:15 VIS not applicable for this client. kj2 Intake: 07:49 IV: 100ml; Total: 100ml. kc6 07:50 IV: 50ml; Total: 150ml. kc6 07:50 IV: 500ml; Total: 650ml. kc6 09:45 IV: 1000ml; Total: 1650ml. kc6 Outcome: 08:16 ER care complete, transfer ordered by rn 10:11 Transferred by ground EMS to [facility], Transfer form completed. kc6 Note: report called to Filipe 10:11 critical 10:11 Instructed on the need for transfer, 10:12 Patient left the ED. kc6 Signatures: Dispatcher [employer] EDMS Nancy Shultz Roman, MD MD rn Campbell, Kaitlyn, RN RN kc6 Trace Samayoa MD MD sp4 Bridgette Whitley 2 Emily Young RN RN 2 Margarita Blas 3 Corrections: (The following items were deleted from the chart) 08:24 07:15 Pain: Unable to use pain scale. Patient is disoriented. kc6 kc6
[2024-02-23] MEDS ORDERED: NA CHLORIDE 0.9% 1,000 ML ONE (08:21)
[2024-02-23] MEDS ORDERED: HYDROCORTISONE SUC 100 MG INJ ONE (09:39)
[2024-02-23 11:00] VITALS: TEMP 97.9
[2024-02-23 11:02] VITALS: O2SAT 100
[2024-02-23 11:07] VITALS: BP 92/60
== END 2024-02-23 10:12 | disposition short-term general hospital (02) ==
LOC: ER 05:47
DX: K76.82 Hepatic encephalopathy (principal); K70.30 Alcoholic cirrhosis of liver without ascites; J18.9 Pneumonia, unspecified organism
CPT/HCPCS: 36415; 51702; 70450; 71045; 80053; 81001; 82077; 82140; 82248; 82947; 83605; 83880; 84484; 85025; 85610; 85730; 86140; 87040; 99291; J0696; J1720; J2405; J7030; J7040; P9047